=== PATIENT | female | born 1965 | race Caucasian/White ===

== ENCOUNTER → 2016-12-17 | Outpatient (CLI) | payer OTHER ==
[~2016-12-17] MED LIST: ACYC200C22 PO; CYCL10TA6 PO; IBUP-1451 PO; PENC1CRE33 EXT
--- NOTE | 2016-12-18 13:56 | MAMMOGRAPHY REPORT ---
BILATERAL DIGITAL SCREENING MAMMOGRAM TOMOSYNTHESIS WITH CAD: 12/17/2016 CLINICAL HISTORY: Routine screening. Patient has no complaints. TECHNIQUE: Breast tomosynthesis in addition to standard 2D mammography was performed. Current study was also evaluated with a Computer Aided Detection (CAD) system. COMPARISON: Comparison is made to exams dated: 12/01/2015 mammogram, 11/30/2014 mammogram, 11/29/2013 ma mmogram, 11/27/2012 mammogram, 11/22/2011 mammogram, and 11/23/2010 mammogram - [facility] enter. BREAST COMPOSITION: The tissue of both breasts is heterogeneously dense, which may obscure small ma sses. FINDINGS: The parenchymal pattern is unchanged. No developing mass, architectural distortion or clu ster of suspicious microcalcifications is seen in either breast. IMPRESSION: ACR BI-RADS CATEGORY 2: BENIGN There is no mammographic evidence of malignancy. A 1 year screening mammogram is recommended. The p atient will receive written notification of the results. Approximately 10% of breast cancers are not detected with mammography. A negative mammographic repor t should not delay biopsy if a clinically suggestive mass is present. Krystal Perry M.D. ay/:12/17/2016 17:26:52 Maintenance Machine Repairer: Jenny SKAGGS(Aaron)(Marely)([place]), [facility] letter sent: Normal 1/2 BI-RADS Code: ACR BI-RADS Category 2: Benign
== END | disposition home or self-care (01) ==
LOC: C.MAMM 13:23
PROVIDERS: ATTEND Family Medicine
DX: Z12.31 Encounter for screening mammogram for malignant neoplasm of breast (principal)

== ENCOUNTER 2017-08-30 19:06 | Emergency (ER) | payer OTHER ==
[~2017-08-30] VITALS: Ht 152.4 cm; Wt 55.3 kg
[2017-08-30 19:09] VITALS: TEMP 36.6; Ht 152.4 cm; Wt 55.3 kg
--- NOTE | 2017-08-30 20:03 | DIAGNOSTIC IMAGING REPORT ---
R KNEE 3 VIEWS CLINICAL HISTORY: 51 years-old Female presenting with RIGHT, FALL ON FLEXED R KNEE. TECHNIQUE: Frontal, sunrise, and lateral views of the right knee were obtained. COMPARISON: None. FINDINGS: No acute fracture or malalignment. No advanced degenerative change. No evidence of a knee joint effusion. IMPRESSION: No acute osseous injury of the right knee. Electronically signed by: Evan Aguiar M.D. 08/30/2017 8:02 PM Dictated Date/Time: 08/30/2017 8:01 PM
--- NOTE | 2017-08-30 20:09 | EMERGENCY ROOM VISIT NOTE ---
ED Visit Note First contact with patient: 19:17 CHIEF COMPLAINT: Right knee injury this morning HISTORY OF PRESENT ILLNESS: Patient is a 51-year-old white female who presents to the emergency department for evaluation of right knee pain. She injured the knee when she slipped at a local grocery store about 8 hours ago. She landed on the flexed right knee. She was helped up by some bystanders. She states that she was able to stand therefore a little bit, was able to walk, with a limp , and completed the rest of her shopping trip. She states she went about the rest of her day, performed normal activities, but states that the knee has gotten a little bit more stiff and sore as the day has gone on. She rates her discomfort a 6/10. She has not taken any medications, nor performed any interventions for her symptoms. 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 She reports that she has a clot in the "right groin," but is not on any blood thinners. REVIEW OF SYSTEMS: Review of systems as per HPI. All other systems reviewed were negative. At least 6 systems reviewed. PMH: Electronic medical records are reviewed and summarized as above/below. See Problem List. SOCIAL HISTORY: Patient lives at home with her family. Nonsmoker. PHYSICAL EXAM: Vital Signs: Reviewed Nurse's notes. MENTAL STATUS: Pleasant, well-appearing 51-year-old white female who is awake and alert and in no acute distress. MUSCULOSKELETAL: Examination of the right knee does not demonstrate any ecchymosis, prepatellar soft tissue swelling or joint effusion. There is an old prepatellar scar noted. There is no tenderness over the quadriceps tendon, the patella or the patellar ligament. Patient can do a straight leg raise without difficulty. There is no peripatellar tenderness or laxity. She has some slight medial joint line discomfort. Range of motion is full. No ligamentous instability is appreciated. Right lower extremity is neurovascularly intact. EMERGENCY DEPARTMENT COURSE: X-ray does not show any fractures or fluid in the joint. The patient was wrapped in Rj wrap and provided crutches for comfort. Conservative care measures were discussed. She was advised to follow- up with her family doctor or orthopedics if her symptoms are not improving. Differential diagnoses include contusion, patellar fracture, sprain, and his color ligamentous injury, among others. Medication reconciliation: I attest that I have personally reviewed the patient' s current medication list. Blood pressure screening : Patient was found to have normal blood pressure on screening and does not require follow-up. R KNEE 3 VIEWS CLINICAL HISTORY: 51 years-old Female presenting with RIGHT, FALL ON FLEXED R KNEE. TECHNIQUE: Frontal, sunrise, and lateral views of the right knee were obtained. COMPARISON: None. FINDINGS: No acute fracture or malalignment. No advanced degenerative change. No evidence of a knee joint effusion. IMPRESSION: No acute osseous injury of the right knee. Problem List Medical Problems: (1) No Known Active Medical Problems Status: Chronic Current/Historical Medications Scheduled PRN Cyclobenzaprine Hcl (Flexeril), 10 MG PO TID PRN for Muscle Spasm Ibuprofen Tab (Motrin), 800 MG PO TID PRN for Pain Allergies Coded Allergies: Pseudoephedrine (Unverified Allergy, Unknown, UNKNOWN, 07/23/10) Soap (Unverified Allergy, Unknown, UNKNOWN, 07/23/10) SAFE GUARD SOAP Uncoded Allergies: NONE (Allergy, Unknown, 06/30/04) Vital Signs Date Time Temp Pulse Resp B/P (MAP) Pulse Ox O2 Delivery O2 Flow Rate FiO2 08/30/17 19:09 36.6 110 20 144/80 98 Room Air Departure Information Impression Primary Impression: Contusion of right knee Referrals Sayda Mejias D.O. (PCP) Patient Instructions My [facility] Additional Instructions Ibuprofen(Motrin, Advil) may be used for fever or pain. Use 600mg every six hours as needed. Take with food. Avoid using more than 2400mg in a 24 hour period. Do not use 2400mg per day for more than three consecutive days without physician direction. Prolonged inappropriate use can lead to stomach upset or ulcers. This medication can be taken if you need to drive, work, or perform activities which may be dangerous when taking narcotic pain medication. (AND/OR) Acetaminophen(Tylenol) may be used for fever or pain. Use 1000mg every six hours as needed. Avoid using more than 3000mg in a 24 hour period. This medication can be taken if you need to drive, work, or perform activities which may be dangerous when taking narcotic pain medication. Ice compresses for 20 minutes at a time four times daily for 2-3 days. Use the crutches as instructed. Rest and elevate your injury. Continue current medications. Return to the ER immediately for any numbness, tingling, severe pain, extreme swelling in the extremity or as needed. Followup with your family doctor or orthopedic surgery if no improvement in 5-7 days.
[2017-08-30 20:19] VITALS: BP 139/87; PULSE 78; O2SAT 97
== END 2017-08-30 20:22 | disposition home or self-care (01) ==
LOC: C.EDB 19:07 → C.EDD 20:22
DX: S80.01XA Contusion of right knee, initial encounter (principal); X58.XXXA Exposure to other specified factors, initial encounter

== ENCOUNTER → 2017-12-18 | Outpatient (CLI) | payer OTHER ==
[~2017-12-18] MED LIST changes: -ACYC200C22 PO; -PENC1CRE33 EXT
--- NOTE | 2017-12-22 08:08 | MAMMOGRAPHY REPORT ---
BILATERAL DIGITAL SCREENING MAMMOGRAM TOMOSYNTHESIS WITH CAD: 12/18/2017 CLINICAL HISTORY: Routine screening. Patient has no complaints. TECHNIQUE: Breast tomosynthesis in addition to standard 2D mammography was performed. Current study was also evaluated with a Computer Aided Detection (CAD) system. COMPARISON: Comparison is made to exams dated: 12/17/2016 mammogram, 12/01/2015 mammogram, 11/30/2014 tram mogram, 11/29/2013 mammogram, 11/27/2012 mammogram, and 11/22/2011 mammogram - [facility]. BREAST COMPOSITION: The tissue of both breasts is heterogeneously dense, which may obscure small mas ses. FINDINGS: No suspicious masses, calcifications, or areas of architectural distortion are noted in ei ther breast. There has been no significant interval change compared to prior exams. Small nodular as ymmetry in the left lateral breast on the cc view is stable compared to prior exams including the 201 1 exam, and considered benign given long-term stability. IMPRESSION: ACR BI-RADS CATEGORY 2: BENIGN There is no mammographic evidence of malignancy. A 1 year screening mammogram is recommended. The pa tient will receive written notification of the results. Approximately 10% of breast cancers are not detected with mammography. A negative mammographic report should not delay biopsy if a clinically suggestive mass is present. Allie Mitchell M.D. /:12/18/2017 14:48:39 Cloth Finishing Range Operator Chief: Aaron Wright M, [facility] letter sent: Normal 1/2 BI-RADS Code: ACR BI-RADS Category 2: Benign
== END | disposition home or self-care (01) ==
LOC: C.MAMM 13:15
PROVIDERS: ATTEND Family Medicine
DX: Z12.31 Encounter for screening mammogram for malignant neoplasm of breast (principal)

== ENCOUNTER 2022-07-20 10:59 | Observation (INO) ==
[2022-07-20] MEDS ORDERED: SODIUM CHLORIDE 0.9% 1000ML 1,000 ML IV ONE ×2 (11:23→12:44)
[2022-07-20] MEDS ORDERED: ONDANSETRON INJ 2 MG/ML 2 ML VIAL IV STA (11:23)
--- NOTE | 2022-07-20 11:28 | Emergency Department Note ---
Impression & Plan Epistaxis, Anemia, Coagulopathy ED Provider Note NAME: SWETA NIETO AGE: 56 SEX: F : 1965 ARRIVES VIA: Ambulance INFORMANT: [Patient][nursing] ED PROVIDER(S): [Surinder Aguilera MD] CHIEF COMPLAINT: Nosebleed HISTORY OF PRESENT ILLNESS: The patient is a 56-year-old female who presents with 2 days of intermittent nasal bleeding. The blood has been coming down both sides of the nose and down the back of her throat. This morning, she was nauseated and vomited blood. She felt dizzy. She was brought by ambulance for evaluation. She is not actively bleeding at the present. The patient is on Eliquis, she is on this for a right leg DVT. She has been on the Eliquis for over 3 months. The patient has no history of previous nasal bleeding. She has never undergone nasal cautery. She states that she does have a tendency to always try to remove any debris or congestion from her nose and she thinks she was trying to clear her nose when the bleeding first began 2 days ago. No fall or trauma. REVIEW OF SYSTEMS: See HPI for pertinent positives and negatives. A total of ten systems were reviewed and were otherwise negative. PMHx/PSHx: See Below SOCIAL HISTORY: See Below. PHYSICAL EXAM: GENERAL: Patient is in no acute distress. HEENT: No acute trauma, normocephalic atraumatic, mucous membranes moist, no nasal congestion, no scleral icterus. The patient is not bleeding currently. There is clot noted to both sides of the nasal septum. There is a defect in the nasal septum and it appears that she has been bleeding along the posterior aspect of the defect. This is where the clot is noted. NECK: No stridor, no adenopathy, no meningismus, trachea is midline. LUNGS: Clear to auscultation bilaterally, no wheeze, no rhonchi, breath sounds equal. HEART: Tachycardic, regular rhythm, no murmurs ABDOMEN: Soft, nontender, bowel sounds positive, no peritonitis. EXTREMITIES: No cyanosis or edema, full range of motion of all the joints without pain or difficulty, no signs for acute trauma. NEUROLOGIC: Oriented x 3, no acute motor or sensory deficits, no focal weakness. SKIN: No rash, no jaundice, no diaphoresis. Pale. DIFFERENTIAL DIAGNOSIS: Coagulopathy, anemia, thrombocytopenia, dehydration, anterior epistaxis, posterior epistaxis, electrolyte imbalance, infection, among others. EMERGENCY DEPARTMENT COURSE/PROCEDURES: ECG: Indication was tachycardia. The ECG shows a sinus tachycardia with a rate of 117. There is no ST elevation, no PVCs. The QTc is 460. Continuous Cardiac Monitoring: An order was placed for continuous cardiac monitoring. The monitor shows a rate of 131 with sinus tachycardia. MEDICAL DECISION MAKING: There is no leukocytosis. Initial hemoglobin was around 11. This was a two-p oint drop for her looking back at previous testing. Platelet count was slightly elevated. No coagulopathy. No renal failure. No concerning liver enzyme elevation. COVID test returned negative. Repeat hemoglobin a few hours later showed a value of 8.9. Around a two-point drop from the earlier value. The patient received 2 L of IV saline for hydration. She was given nasal spray to prevent further nasal bleeding. She was given IV Zofran for nausea. Patient has an anterior nasal septal defect. She was bleeding from the posterior aspect of this defect prior to arrival but did not have any bleeding during her time in the ER. Given her Eliquis use, given the hemoglobin drop, given the epistaxis, I did think a hospital stay was warranted. I did speak with the patient and case management, the on-call hospitalist was consulted. I believe the Eliquis should be held for several days until the bleeding is better controlled. The risks of using Eliquis currently are outweighing the be nefits. Past Med/Surg History Medical History Asthma Colon cancer 1986 - s/p ileostomy DVT (deep venous thrombosis) History of ulcerative colitis Surgical History (Updated 07/20/22 @ 16:53 by Francheska Raymond PA-C) H/O total colectomy History of D&C History of ileostomy History of tubal ligation Family History (Updated 09/13/19 @ 18:13 by Tonio Griggs) Other Cancer Social History Smoking Status: Former smoker Preferred Language: Khmer marital status: current occupational status: unemployed Feels Safe at Home: Yes Allergies Allergies Allergy/AdvReac Type Severity Reaction Status Date / Time pseudoephedrine Allergy Unknown UNKNOWN Unverified 07/20/22 11:08 soap Allergy Unknown UNKNOWN Unverified 07/20/22 11:08 Sulfa (Sulfonamide Allergy Unknown Unknown Verified 07/20/22 11:08 Antibiotics) Home Meds Home Medications Medication Instructions Recorded Confirmed gabapentin 300 mg capsule 300 mg PO TID 02/20/19 07/20/22 apixaban 5 mg tablet (Eliquis) 5 mg PO BID 07/20/22 07/20/22 Results & Data (ED) Vital Signs Vital Signs - 24 hr 07/20/22 11:12 07/20/22 11:32 07/20/22 13:03 Temperature 36.9 C Temperature Source Oral Pulse Rate 133 H Pulse Rate [Finger] 117 H 116 H Pulse Rhythm Regular Pulse Strength Normal Respiratory Rate 18 16 16 Respiratory Effort / Characteristics Non-Labored Spontaneous Respiratory Depth Normal Respiratory Pattern Regular Blood Pressure 125/75 Blood Pressure [Right Arm] 125/75 129/78 Blood Pressure Mean 91 Blood Pressure Mean [Right Arm] 91 95 Blood Pressure Position Sitting Blood Pressure Position [Right Arm] Pulse Oximetry 100 98 98 Oxygen Delivery Method Room Air Room Air Room Air Sepsis Recent Fever Within 48 Hours No Sepsis New/Unexplained Change in Mental Status No Sepsis Action Taken by Nursing No Action Required 07/20/22 14:47 07/20/22 15:43 07/20/22 18:00 Temperature Temperature Source Pulse Rate Pulse Rate [Finger] 108 H 102 H 107 H Pulse Rhythm Pulse Strength Respiratory Rate 16 16 18 Respiratory Effort / Characteristics Non-Labored Non-Labored Spontaneous Respiratory Depth Normal Normal Respiratory Pattern Blood Pressure Blood Pressure [Right Arm] 118/72 116/71 115/66 Blood Pressure Mean Blood Pressure Mean [Right Arm] 87 86 82 Blood Pressure Position Blood Pressure Position [Right Arm] Lying Pulse Oximetry 98 98 99 Oxygen Delivery Method Room Air Room Air Sepsis Recent Fever Within 48 Hours Sepsis New/Unexplained Change in Mental Status Sepsis Action Taken by Retirement Medications Current Medication List: was personally reviewed by me Laboratory Data Attestation: I reviewed the patient's lab results. Result diagrams: 07/20/22 14:35 07/20/22 11:11 Lab Results 07/20/22 07/20/22 07/20/22 Range/Units 11:11 11:11 11:11 WBC 10.55 (4.8-10.8) K/ul RBC 4.67 (3.93-5.22) M/uL Hgb 11.1 L (12.0-16.0) g/dl Hct 34.7 (34.1-44.9) % MCV 74.3 L (80.0-100.0) fL MCH 23.8 L (25.0-34.0) pg MCHC 32.0 (32.0-36.0) g/dL RDW Std Deviation 43.5 (36.4-46.3) fL RDW Coeff of Marah 16.1 H (11.5-14.5) % Plt Count 509 H (130-400) K/uL MPV 8.9 L (9.4-12.3) fL Immature Gran % (Auto) 0.4 % Neut % (Auto) 93.4 % Lymph % (Auto) 3.8 % Rice % (Auto) 2.3 % Eos % (Auto) 0.0 % Baso % (Auto) 0.1 % Neut # (Auto) 9.86 H (1.4-6.5) K/uL Lymph # (Auto) 0.40 L (1.2-3.4) K/uL Rice # (Auto) 0.24 (0.24-0.82) K/uL Eos # (Auto) 0.00 (0-0.50) K/uL Baso # (Auto) 0.01 (0-0.2) K/uL Immature Gran # (Auto) 0.04 H (0.00-0.02) K/uL PT 11.3 (9.0-12.0) Seconds INR 1.1 (0.9-1.1) APTT 23.6 (21.0-31.0) Seconds PTT Ratio 0.9 Sodium 140 (136-145) mmol/L Potassium 4.3 (3.5-5.1) mmol/L Chloride 109 H (98-107) mmol/L Carbon Dioxide 24 (21-32) mmol/L Anion Gap 7 (3-11) BUN 36 H (6-23) mg/dl Creatinine 0.51 L (0.6-1.2) mg/dl Est Cr Clr Drug Dosing 78.4 ml/min Est GFR ( Amer) 122.8 ml/min Est GFR (Non-Af Amer) 106.0 ml/min BUN/Creatinine Ratio 70.6 H (10-20) Glucose 189 H (70-99(Fasting)) mg/dl Calcium 8.9 (8.5-10.1) mg/dl Magnesium 1.8 (1.7-2.4) mg/dl Total Bilirubin 0.3 (0.2-1.0) mg/dl AST 12 L (13-39) U/L ALT 10 (7-52) U/L Alkaline Phosphatase 66 (34-104) U/L Total Protein 6.5 (6.0-8.3) gm/dl Albumin 3.7 (3.4-5.0) gm/dl Globulin 2.8 (2.5-4.0) gm/dl Albumin/Globulin Ratio 1.3 (0.9-2) SARS-CoV-2, RNA, NAAT (NEGATIVE) 07/20/22 07/20/22 Range/Units 14:35 17:42 WBC (4.8-10.8) K/ul RBC (3.93-5.22) M/uL Hgb 8.9 L (12.0-16.0) g/dl Hct (34.1-44.9) % MCV (80.0-100.0) fL MCH (25.0-34.0) pg MCHC (32.0-36.0) g/dL RDW Std Deviation (36.4-46.3) fL RDW Coeff of Marah (11.5-14.5) % Plt Count (130-400) K/uL MPV (9.4-12.3) fL Immature Gran % (Auto) % Neut % (Auto) % Lymph % (Auto) % Rice % (Auto) % Eos % (Auto) % Baso % (Auto) % Neut # (Auto) (1.4-6.5) K/uL Lymph # (Auto) (1.2-3.4) K/uL Rice # (Auto) (0.24-0.82) K/uL Eos # (Auto) (0-0.50) K/uL Baso # (Auto) (0-0.2) K/uL Immature Gran # (Auto) (0.00-0.02) K/uL PT (9.0-12.0) Seconds INR (0.9-1.1) APTT (21.0-31.0) Seconds PTT Ratio Sodium (136-145) mmol/L Potassium (3.5-5.1) mmol/L Chloride (98-107) mmol/L Carbon Dioxide (21-32) mmol/L Anion Gap (3-11) BUN (6-23) mg/dl Creatinine (0.6-1.2) mg/dl Est Cr Clr Drug Dosing ml/min Est GFR ( Amer) ml/min Est GFR (Non-Af Amer) ml/min BUN/Creatinine Ratio (10-20) Glucose (70-99(Fasting)) mg/dl Calcium (8.5-10.1) mg/dl Magnesium (1.7-2.4) mg/dl Total Bilirubin (0.2-1.0) mg/dl AST (13-39) U/L ALT (7-52) U/L Alkaline Phosphatase (34-104) U/L Total Protein (6.0-8.3) gm/dl Albumin (3.4-5.0) gm/dl Globulin (2.5-4.0) gm/dl Albumin/Globulin Ratio (0.9-2) SARS-CoV-2, RNA, NAAT NEGATIVE (NEGATIVE) Administered Medications Discontinued Medications Sodium Chloride (Nss 1000ml) 1,000 mls @ 999 mls/hr IV .Q1H1M ONE Stop: 07/20/22 12:23 Last Infusion: 07/20/22 12:27 Dose: 0 mls/hr Documented By: Admin: 07/20/22 11:27 Dose: 999 mls/hr Documented By: AISLINN Sodium Chloride (Nss 1000ml) 1,000 mls @ 999 mls/hr IV .Q1H1M ONE Stop: 07/20/22 13:44 Last Infusion: 07/20/22 13:43 Dose: 0 mls/hr Documented By: Admin: 07/20/22 12:47 Dose: 999 mls/hr Documented By: YEISON Ondansetron HCl (Ondansetron Inj 2 Mg/Ml 2 Ml Vial) 4 mg IV NOW STA Stop: 07/20/22 11:24 Last Admin: 07/20/22 11:27 Dose: 4 mg Documented By: AISLINN Sodium Chloride (Sodium Chloride 0.65% Na Soln 45 Ml ([place])) 1 sprays NA NOW ONE Stop: 07/20/22 12:50 Last Admin: 07/20/22 12:55 Dose: 1 sprays Documented By: YEISON Discharge Plan Visit Data Chief Complaint: Nose Bleed (Minor) ED Provider: Surinder Aguilera Discharge Problem: Epistaxis, Anemia, Coagulopathy Patient Disposition: Admitted As Inpatient Condition: Good Forms Stand Alone Forms: My [facility] Prescriptions Prescriptions: No Action gabapentin 300 mg capsule 300 mg PO TID Eliquis 5 mg tablet 5 mg PO BID Referrals Referrals: Sayda Mejias DO [Outside Practitioners] -
[2022-07-20 11:33] LABS: Hematocrit (blood only) 34.7 % (34.1-44.9); Hemoglobin 11.1 g/dl (12.0-16.0); Mean Corpuscular Hemoglobin 23.8 pg (25.0-34.0); Mean Corpuscular Volume 74.3 fL (80.0-100.0); Mean Platelet Volume 8.9 fL (9.4-12.3); Platelet Count 509 K/uL (130-400); RDW Coefficient of Variation 16.1 % (11.5-14.5); RDW Standard Deviation 43.5 fL (36.4-46.3); Red Blood Count 4.67 M/uL (3.93-5.22); White Blood Count 10.55 K/ul (4.8-10.8)
[2022-07-20 11:50] LABS: INR 1.1 (0.9-1.1); Partial Thromboplastin Ratio 0.9; Partial Thromboplastin Time 23.6 Seconds (21.0-31.0); Prothrombin Time 11.3 Seconds (9.0-12.0)
[2022-07-20 11:51] LABS: Basophils # (auto) 0.01 K/uL (0-0.2); Basophils % (auto) 0.1 %; Immature Granulocytes # (auto) 0.04 K/uL (0.00-0.02); Immature Granulocytes % (auto) 0.4 %; Lymphocytes % (auto) 3.8 %; Monocytes # (auto) 0.24 K/uL (0.24-0.82); Monocytes % (auto) 2.3 %; Neutrophils # (auto) 9.86 K/uL (1.4-6.5); Neutrophils % (auto) 93.4 %
[2022-07-20 11:54] LABS: Albumin Globulin Ratio 1.3 (0.9-2); Albumin Level 3.7 gm/dl (3.4-5.0); BUN Creatinine Ratio 70.6 (10-20); Bilirubin,Total 0.3 mg/dl (0.2-1.0); Calcium 8.9 mg/dl (8.5-10.1); Creatinine Clr Calc Pharmacy 78.4 ml/min; Est GFR (African American) 122.8 ml/min; Globulin 2.8 gm/dl (2.5-4.0); Magnesium 1.8 mg/dl (1.7-2.4); Potassium 4.3 mmol/L (3.5-5.1); Total Protein 6.5 gm/dl (6.0-8.3)
[2022-07-20] MEDS ORDERED: SODIUM CHLORIDE 0.65% NA SOLN 45 ML (OCEAN) ONE (12:49)
--- NOTE | 2022-07-20 16:53 | History & Physical Report ---
Date of Service July 20, 2022 Assessment & Plan (1) Epistaxis: Plan: Anterior septal defect noted on exam - bleeding likely related to defect and digital trauma in the setting of chronic anticoagulation. No bleeding at present but marked drop in H&H from baseline 13-14 to 9. - Observe overnight with serial H&H - Blood consent done by Dr. Valencia - holding transfusion for now but pt agreeable if H&H continue to drop - Outpatient ENT follow-up - Hold Eliquis tonight and tomorrow morning - restart tomorrow if H&H stabilizes and no recurrent bleeding - Consider GI consult if ongoing drop in H&H that is not accounted for by epistaxis - will check FOBT althought anticipate it will be positive with recent hematemesis related to epistaxis (2) Acute blood loss anemia: (3) Chronic anticoagulation: (4) History of ulcerative colitis: Plan Continue other home medications as appropriate Pt seen and reviewed with collaborating physician, Dr. Valencia. Plan of care discussed and as outlined above. Code Status: Full code DVT Prophylaxis: SCDs for now - resume Eliquis as discussed above. Netta Raymond PA-C History of Present Illness Chief Complaint: Nose bleeding Primary Care Provider: Susie Ribera MD This is a 56 y/o female with a PMH of ulcerative colitis and colon cancer s/p total colectomy with ileostomy in 1986 and hx DVT on chronic Eliquis who presents to the ED today with recurrent epistaxis. Pt reports occasional issues with epistaxis prior to starting Eliquis but reports that she uses her finger to clear her nose at times. Two days ago, she started with more significant epistaxis than she has experienced previously, describing it was profuse at times. She was able to stop the bleeding each time with pressure. This morning, however, she reports swallowing a moderate amount of blood such that she started vomiting bloody clots. She had associated nausea, dizziness, and weakness so she came to the ED for additional evaluation. Since being in the ED, she has had no additional episodes of epistaxis. Nausea improve with Zofran. Of note, she started on Eliquis in December for a DVT and is recommended to continue this indefinitely. She denies abdominal pain, nasal pain, fevers, vaginal bleeding, chest pain, dyspnea. No recent change in ileostomy output or color. Allergies Allergy/AdvReac Type Severity Reaction Status Date / Time pseudoephedrine Allergy Unknown UNKNOWN Unverified 07/20/22 11:08 soap Allergy Unknown UNKNOWN Unverified 07/20/22 11:08 Sulfa (Sulfonamide Allergy Unknown Unknown Verified 07/20/22 11:08 Antibiotics) Home Medications Medication Instructions Recorded Confirmed Type gabapentin 300 mg capsule 300 mg PO TID 02/20/19 07/20/22 History apixaban 5 mg tablet (Eliquis) 5 mg PO BID 07/20/22 07/20/22 History Past Med/Surg History Medical History (Updated 07/20/22 @ 19:25 by Francheska Raymond PA-C) Asthma Colon cancer 1986 - s/p ileostomy DVT (deep venous thrombosis) History of ulcerative colitis Surgical History H/O total colectomy History of D&C History of ileostomy History of tubal ligation Family History Other Cancer Social History Smoking Status: Former smoker Preferred Language: Swedish marital status: current occupational status: unemployed Feels Safe at Home: Yes Review of Systems Review of Systems: All systems reviewed & are unremarkable except as noted in HPI & below Constitutional: + fatigue; no fever and no chills Ear, Nose, Mouth, Throat: as per Subjective / HPI Respiratory: no cough and no dyspnea Cardiovascular: no chest pain and no palpitations Gastrointestinal: no abdominal pain, no nausea, no vomiting and no blood in stools Genitourinary: no hematuria Musculoskeletal: no neck pain and no myalgia Integumentary: no yellowing of the skin Neurologic: + generalized weakness and + dizziness; no syncope and no headache(s) Psychiatric: no depression and no anxiety Physical Exam Constitutional: + thin; no acute distress Eyes: + anicteric sclerae ENMT: large anterior nasal septal defect with small amount of clotted blood Neck: trachea midline Respiratory: no respiratory distress and no labored breathing Auscultation: lungs clear to auscultation bilaterally; no rales, no rhonchi and no wheezes Cardiovascular: Rate/Rhythm: regular rhythm and + tachycardic trace right > left LE edema Gastrointestinal (Abdomen): Inspection/Auscultation: normal bowel sounds; abdomen not distended Percussion/Palpation: abdomen soft; abdomen nontender right abdomen with ileostomy Musculoskeletal: Head/Neck/Chest: normocephalic, head atraumatic and neck supple Skin: no jaundice Neurologic: moves all extremities; no focal motor deficits and not confused Psychiatric: A+Ox3, euthymic affect Results & Data Results & Data ([facility]) Vital Signs (Past 12 Hours) Vital Signs Temp Pulse Pulse Resp BP BP Pulse Ox 07/20/22 15:43 102 H 16 116/71 98 07/20/22 14:47 108 H 16 118/72 98 07/20/22 13:03 116 H 16 129/78 98 07/20/22 11:32 117 H 16 125/75 98 07/20/22 11:12 36.9 C 133 H 18 125/75 100 O2 Del Method 07/20/22 15:43 07/20/22 14:47 Room Air 07/20/22 13:03 Room Air 07/20/22 11:32 Room Air 07/20/22 11:12 Room Air Laboratory Results Laboratory Results - last 24 hr 07/20/22 07/20/22 07/20/22 11:11 11:11 11:11 WBC 10.55 RBC 4.67 Hgb 11.1 L Hct 34.7 MCV 74.3 L MCH 23.8 L MCHC 32.0 RDW Std Deviation 43.5 RDW Coeff of Marah 16.1 H Plt Count 509 H MPV 8.9 L Immature Gran % (Auto) 0.4 Neut % (Auto) 93.4 Lymph % (Auto) 3.8 Lincoln % (Auto) 2.3 Eos % (Auto) 0.0 Baso % (Auto) 0.1 Neut # (Auto) 9.86 H Lymph # (Auto) 0.40 L Lincoln # (Auto) 0.24 Eos # (Auto) 0.00 Baso # (Auto) 0.01 Immature Gran # (Auto) 0.04 H PT 11.3 INR 1.1 APTT 23.6 PTT Ratio 0.9 Sodium 140 Potassium 4.3 Chloride 109 H Carbon Dioxide 24 Anion Gap 7 BUN 36 H Creatinine 0.51 L Est Cr Clr Drug Dosing 78.4 Est GFR ( Amer) 122.8 Est GFR (Non-Af Amer) 106.0 BUN/Creatinine Ratio 70.6 H Glucose 189 H Calcium 8.9 Magnesium 1.8 Total Bilirubin 0.3 AST 12 L ALT 10 Alkaline Phosphatase 66 Total Protein 6.5 Albumin 3.7 Globulin 2.8 Albumin/Globulin Ratio 1.3 07/20/22 14:35 WBC RBC Hgb 8.9 L Hct MCV MCH MCHC RDW Std Deviation RDW Coeff of Marah Plt Count MPV Immature Gran % (Auto) Neut % (Auto) Lymph % (Auto) Lincoln % (Auto) Eos % (Auto) Baso % (Auto) Neut # (Auto) Lymph # (Auto) Lincoln # (Auto) Eos # (Auto) Baso # (Auto) Immature Gran # (Auto) PT INR APTT PTT Ratio Sodium Potassium Chloride Carbon Dioxide Anion Gap BUN Creatinine Est Cr Clr Drug Dosing Est GFR ( Amer) Est GFR (Non-Af Amer) BUN/Creatinine Ratio Glucose Calcium Magnesium Total Bilirubin AST ALT Alkaline Phosphatase Total Protein Albumin Globulin Albumin/Globulin Ratio Medications Administered Discontinued Medications Sodium Chloride (Nss 1000ml) 1,000 mls @ 999 mls/hr IV .Q1H1M ONE Stop: 07/20/22 12:23 Last Infusion: 07/20/22 12:27 Dose: 0 mls/hr Documented By: Admin: 07/20/22 11:27 Dose: 999 mls/hr Documented By: AISLINN Sodium Chloride (Nss 1000ml) 1,000 mls @ 999 mls/hr IV .Q1H1M ONE Stop: 07/20/22 13:44 Last Infusion: 07/20/22 13:43 Dose: 0 mls/hr Documented By: Admin: 07/20/22 12:47 Dose: 999 mls/hr Documented By: YEISON Ondansetron HCl (Ondansetron Inj 2 Mg/Ml 2 Ml Vial) 4 mg IV NOW STA Stop: 07/20/22 11:24 Last Admin: 07/20/22 11:27 Dose: 4 mg Documented By: AISLINN Sodium Chloride (Sodium Chloride 0.65% Na Soln 45 Ml ([place])) 1 sprays NA NOW ONE Stop: 07/20/22 12:50 Last Admin: 07/20/22 12:55 Dose: 1 sprays Documented By: YEISON Code Status & VTE Plan VTE Prophylaxis Plan VTE Prophylaxis will be ordered: Yes Supervising Physician Co-Signing Physician Notes Pt is a 56 y/o F with hx of UC and Colon Ca s/p ileostomy, recent hx of DVT on eliquis seen for drop in anemia and recurrent nose bleed. Dx with DVT on 12/2021 Per pt she cleans her nose often and started noticing bleeding 2 days ago PE: NAD, well developed HEENT: b/l dried blood in the nasal passage with nasal septal deformities, no ulcers Lungs: CTA, no wheezing or crackles Cardiac: Normal S1/S2, no murmur Abd: ND, Soft, ileostomy in place MSK: no LE edema Psych: AAOx3, normal affect A/P: Nose bleed with acute drop in hgb: -will hold the eliquis today -repeat CBC in 6 hrs x2 - pt is currently not having any acute bleeding - per pt she did have vomiting episode of blood clots --- likely from swallowing the blood from nose bleed --- not suspecting GI bleed -will send for FOBT (likely going to be positive) - if the hgb continues to trend down then I recommend GI consultation for possible scope celestina with hx of UC -can restart eliquis once the hgb is stabilize Agree with A/P by Francheska Raymond PA-C
[2022-07-20] MEDS ORDERED: ACETAMINOPHEN 325 MG TAB PO PRN (20:03)
[2022-07-20] MEDS: GABAPENTIN 300 MG CAP PO SCH (21:13)
[2022-07-20] MEDS ORDERED: MELATONIN 3 MG TAB PO PRN (21:28)
[2022-07-21 01:16] LABS: Hematocrit (blood only) 24.3 % (34.1-44.9); Hemoglobin 7.8 g/dl (12.0-16.0)
[2022-07-21] MEDS ORDERED: MAGNESIUM SULFATE / D5W 1 GM/100 ML BAG IV ONE ×2 (01:29→19:11)
[2022-07-21 06:16] LABS: Hematocrit (blood only) 23.9 % (34.1-44.9); Hemoglobin 7.7 g/dl (12.0-16.0)
[2022-07-21] MEDS: GABAPENTIN 300 MG CAP PO SCH ×3 (08:00→19:55)
[2022-07-21] MEDS: SODIUM CHLORIDE 0.9% 1000ML 1,000 ML IV SCH (08:01)
[2022-07-21 11:58] LABS: Hematocrit (blood only) 23.2 % (34.1-44.9); Hemoglobin 7.4 g/dl (12.0-16.0)
--- NOTE | 2022-07-21 13:07 | Hospitalist Progress Note ---
Date of Service July 21, 2022 Assessment & Plan (1) Epistaxis: Plan (1) Epistaxis: Anterior septal defect noted on exam - bleeding likely related to defect and digital trauma in the setting of chronic anticoagulation. No bleeding at present but marked drop in H&H from baseline 13-14 to 9 at admission day. - Observe overnight with serial H&H, Hb gradually dropping, low threshold for transfusion if w/ further drop in the evening. Bloos consent obtained on day of admission. - Iron profile sent, f/u - Avoid nose picking, Outpatient ENT follow-up - c/t hold Eliquis, restart when H&H stabilizes and no recurrent bleeding -Pt w/ no chest pain/dizziness or feeling of heart racing, BP soft and HR on higher side, continue to monitor clinically. (2) Acute blood loss anemia: see above (3) Chronic anticoagulation: (4) History of ulcerative colitis: Plan Continue other home medications as appropriate Code Status: Full code DVT Prophylaxis: SCDs for now - resume Eliquis as discussed above. Ambulation w/ assistance. Admission and Anticipated Discharge Date Admission Date: July 20, 2022 Subjective Patient seen and examined at bedside as a follow-up of acute blood loss anemia secondary to epistaxis on the background of chronic anticoagulation. Patient was lying in bed, on room air, NAD, reports eating okay and moving bowels okay, denies any further nasal bleeding while in hospital, denies any nose picking while in hospital, patient advised to avoid nose picking in future especially given that she is on blood thinner, patient denies headache or dizziness or chest pain or palpitation, patient denies sore throat or fever or chills or belly pain or other review of symptoms. Patient was revisited again during the day with the update on her repeat noon hemoglobin level which was lower than in the morning, because of hemoglobin not being stable and constantly though gradually dropping, will like to observe the patient overnight and further eval if we need to transfuse any blood. Iron profile pending. Physical Exam Physical Exam: GENERAL: Alert and oriented x3. NAD, on RA. HEENT: No pallor, no icterus. Pupils equal, round and reactive to light. Oral mucosa moist. Dried blood in b/l nares w/ nasal septal deformities. NECK: No JVD, no neck masses. HEART: S1 and S2 heard. Regular rate and rhythm. No murmur, no gallop. RESPIRATORY SYSTEM: Normal AP diameter. No accessory muscle use. No wheezing, no crackles. ABDOMEN: Soft, bowel sounds present, nontender, no distention. stoma bag noted. Healed old surgical scar +. CENTRAL NERVOUS SYSTEM: No facial droop. Speech is clear. Obeys simple commands. Moves extremities. EXTREMITIES: No edema but RLE size > LLE d/t recent clot in RLE, non tender, no erythema seen. Results & Data Results & Data ([facility]) Vital Signs (Past 12 Hours) Vital Signs Temp Pulse Pulse Resp BP Pulse Ox O2 Del Method 07/21/22 11:45 36.8 C 94 H 18 93/58 L 100 Room Air 07/21/22 08:06 36.8 C 96 H 16 97/55 L 97 Room Air 07/21/22 07:19 118 H 07/21/22 03:20 36.8 C 96 H 18 102/62 98 Room Air
[2022-07-21 13:12] LABS: Ferritin 6.5 ng/ml (8-388)
[2022-07-21] MEDS: FOLIC ACID 1 MG TAB PO SCH (17:14)
[2022-07-21] MEDS: CYANOCOBALAMIN (B-12) 100 MCG TABLET PO SCH (17:14)
[2022-07-21] MEDS ORDERED: IRON SUCROSE 200 MG in 0.9 % SODIUM CHLORIDE 100 ML IV ONE (18:00)
[2022-07-21 18:57] LABS: Hematocrit (blood only) 22.9 % (34.1-44.9); Hemoglobin 7.4 g/dl (12.0-16.0)
--- NOTE | 2022-07-21 22:02 | Electrocardiogram Report ---
Test Reason : Blood Pressure : / mmHG Vent. Rate : 117 BPM Atrial Rate : 117 BPM P-R Int : 132 ms QRS Dur : 104 ms QT Int : 330 ms P-R-T Axes : 066 069 068 degrees QTc Int : 460 ms Sinus tachycardia Incomplete right bundle branch block When compared with ECG of 28-JUL-2012 13:06, No significant change was found Confirmed by Drew Santana ([id number]) on 07/21/2022 10:02:13 PM Referred By: REFERRED SELF Confirmed By:Drew Santana
[2022-07-21 23:57] LABS: Hematocrit (blood only) 22.1 % (34.1-44.9); Hemoglobin 7.1 g/dl (12.0-16.0)
[2022-07-22] MEDS: SODIUM CHLORIDE 0.9% 1000ML 1,000 ML IV SCH (01:17)
[2022-07-22] MEDS ORDERED: SODIUM CHLORIDE 0.9% 250 ML IV PRN (07:32)
[2022-07-22 07:34] LABS: Hematocrit (blood only) 21.2 % (34.1-44.9); Hemoglobin 6.8 g/dl (12.0-16.0); Mean Corpuscular Hemoglobin 24.4 pg (25.0-34.0); Mean Corpuscular Hgb Conc 32.1 g/dL (32.0-36.0); Mean Platelet Volume 8.7 fL (9.4-12.3); Platelet Count 273 K/uL (130-400); RDW Coefficient of Variation 16.1 % (11.5-14.5); RDW Standard Deviation 44.6 fL (36.4-46.3); Red Blood Count 2.79 M/uL (3.93-5.22); White Blood Count 3.98 K/ul (4.8-10.8)
[2022-07-22] MEDS: FOLIC ACID 1 MG TAB PO SCH (07:43)
[2022-07-22] MEDS: GABAPENTIN 300 MG CAP PO SCH ×2 (07:43→15:21)
[2022-07-22] MEDS: CYANOCOBALAMIN (B-12) 100 MCG TABLET PO SCH (07:44)
[2022-07-22 09:43] LABS: BUN Creatinine Ratio 18.6 (10-20); Calcium 7.6 mg/dl (8.5-10.1); Creatinine Clr Calc Pharmacy 105.1 ml/min; Est GFR (African American) 129.9 ml/min; Est GFR (Non-African American) 112.1 ml/min; Potassium 3.1 mmol/L (3.5-5.1)
[2022-07-22 14:20] LABS: Hemoglobin 9.3 g/dl (12.0-16.0)
[2022-07-22] MEDS ORDERED: POTASSIUM CHLORIDE CRTAB 20 MEQ TABCR PO STA (16:19)
--- NOTE | 2022-07-22 16:32 | Discharge Summary ---
Date of Service July 22, 2022 Admission HPI Per Admitting Provider This is a 56 y/o female with a PMH of ulcerative colitis and colon cancer s/p total colectomy with ileostomy in 1986 and hx DVT on chronic Eliquis who presents to the ED today with recurrent epistaxis. Pt reports occasional issues with epistaxis prior to starting Eliquis but reports that she uses her finger to clear her nose at times. Two days ago, she started with more significant epistaxis than she has experienced previously, describing it was profuse at times. She was able to stop the bleeding each time with pressure. This morning, however, she reports swallowing a moderate amount of blood such that she started vomiting bloody clots. She had associated nausea, dizziness, and weakness so she came to the ED for additional evaluation. Since being in the ED, she has had no additional episodes of epistaxis. Nausea improve with Zofran. Of note, she started on Eliquis in December for a DVT and is recommended to continue this indefinitely. She denies abdominal pain, nasal pain, fevers, vaginal bleeding, chest pain, dyspnea. No recent change in ileostomy output or color. Admission Exam Per Admitting Provider Constitutional: + thin; no acute distress Eyes: + anicteric sclerae ENMT: large anterior nasal septal defect with small amount of clotted blood Neck: trachea midline Respiratory: no respiratory distress and no labored breathing Auscultation: lungs clear to auscultation bilaterally; no rales, no rhonchi and no wheezes Cardiovascular: Rate/Rhythm: regular rhythm and + tachycardic trace right > left LE edema Gastrointestinal (Abdomen): Inspection/Auscultation: normal bowel sounds; abdomen not distended Percussion/Palpation: abdomen soft; abdomen nontender right abdomen with ileostomy Musculoskeletal: Head/Neck/Chest: normocephalic, head atraumatic and neck supple Skin: no jaundice Neurologic: moves all extremities; no focal motor deficits and not confused Psychiatric: A+Ox3, euthymic affect Principal Diagnosis Epistaxis Recent diagnosis of DVT in December 2021 On chronic anticoagulation Discharge Exam GENERAL: Alert and oriented x3. NAD, on RA. HEENT: No pallor, no icterus. Pupils equal, round and reactive to light. Oral mucosa moist. Dried blood in b/l nares w/ nasal septal deformities. No active bleeding noted back of throat. NECK: No JVD, no neck masses. HEART: S1 and S2 heard. Regular rate and rhythm. No murmur, no gallop. RESPIRATORY SYSTEM: Normal AP diameter. No accessory muscle use. No wheezing, no crackles. ABDOMEN: Soft, bowel sounds present, nontender, no distention. stoma bag noted. Healed old surgical scar +. CENTRAL NERVOUS SYSTEM: No facial droop. Speech is clear. Obeys simple commands. Moves extremities. EXTREMITIES: No edema but RLE size > LLE d/t recent clot in RLE, non tender, no erythema seen. Discharge Data Allergies Allergy/AdvReac Type Severity Reaction Status Date / Time pseudoephedrine Allergy Unknown UNKNOWN Unverified 07/20/22 11:08 soap Allergy Unknown UNKNOWN Unverified 07/20/22 11:08 Sulfa (Sulfonamide Allergy Unknown Unknown Verified 07/20/22 11:08 Antibiotics) Consultations 07/20/22 16:45 ED Decision to Admit Stat 07/22/22 12:06 Consult Otolaryngology (Head and Neck) Routine Hospital Course (1) Epistaxis: Plan 56 yo F was managed for the following: (1) Epistaxis: Anterior septal defect noted on exam - bleeding likely related to defect and digital trauma in the setting of chronic anticoagulation. No bleeding at present but marked drop in H&H from baseline 13-14 to 9 at admission day which gradually went below 7 requiring 1 unit prbc and f/u hb was 9.3. Iron profile w/ ALFREDO and pt started on iron/vit b12/folate supplements. Pt insists on going home, ideally would want to make sure her Hb is stable for 2-3 readings 6 hrs apart. She insists she will f/u w/ pcp in 3-5 days and will get her labs drawn. Same was communicated to her who seems to be in agreement with her decision. - Tried to reach out to ENT but no ENT career information specialist today. - Avoid nose picking, Outpatient ENT follow-up, very imp for patient and patient made aware - c/t hold Eliquis for 2-3 days upon DC, restart when H&H stabilizes and no recurrent bleeding, close f/u w/ PCP. -Pt w/ no chest pain/dizziness or feeling of heart racing, VSS. (2) Acute blood loss anemia: see above (3) Chronic anticoagulation: d/t recent diagnosis of RLE DVt. (4) History of ulcerative colitis: Plan Continue other home medications as appropriate Code Status: Full code DVT Prophylaxis: SCDs for now - resume Eliquis as discussed above. Ambulation w/ assistance. Following instructions were communicated to the patient, and patient's via phone. Patient being discharged to home with following instruction at the point of discharge: Follow-up with your primary care physician within 3 to 5 days as discussed at the bedside, and you will need your blood work CBC/CMP/magnesium level in 3 days upon discharge which you will have to coordinate with your PCP office. As discussed at the bedside, you will need to establish ENT doctor and follow-up for long-term management of your septal perforation and recurrent epistaxis now that you need chronic anticoagulation. Avoid picking nose. Hold your Eliquis for 2 to 3 days, if no further bleeding from nose, resume your Eliquis and make your primary care doctor aware. If with further nasal bleeding or with signs and symptoms of low blood [dizziness/easy fatigability/heart racing/chest pain/weakness/increased pallor etc.], immediately contact ED. Take your medications as prescribed. Home Health Attestation I certify that this patient is under my care and that I, or a physicians assistant press operator working with me, had a face to-face encounter that meets the home health [id number] encounter requirements with this patient. The encounter with the patient was in whole, or in part, for the following medical condition, which is the primary reason for home health care (list medical condition): I certify that, based on my findings, the following services are medically necessary home health services: My clinical findings support the need for the above services because: Further, I certify that my clinical findings support that this patient is homebound (i.e. absences from home require considerable and taxing effort and are for medical reasons or restorationist services or infrequently or of short duration when for other reasons) because: Certification for Home Health Services: Based on the above findings, I certify that this patient is confined to the home and needs intermittent mcc care, physical therapy and/or speech therapy or continues to need occupational therapy. The patient is under my care, and I have initiated the establishment of the plan of care. This patient will be followed by a physician who will periodically review the plan of care. Total Time Total Time Spent Total Time Spent (In Minutes): 45 Discharge Plan Discharge Items Patient Disposition: Home - Self-Care Reason For Visit: NOSE BLEED Discharge Diagnosis: Epistaxis Recent diagnosis of DVT in December 2021 On chronic anticoagulation Condition on Discharge: Good Activity: Resume your previous activity Non-emergency contact: Primary Care Provider Call non-emergency contact if: you have any medication questions, your symptoms worsen, you have a fever and your temperature is above 101.5 Follow-up/Referrals: Susie Ribera MD [Primary Care Provider] - Diet: Heart Healthy Addtl Attending Provider Instructions: Follow-up with your primary care physician within 3 to 5 days as discussed at the bedside, and you will need your blood work CBC/CMP/magnesium level in 3 days upon discharge which you will have to coordinate with your PCP office. As discussed at the bedside, you will need to establish ENT doctor and follow-up for long-term management of your septal perforation and recurrent epistaxis now that you need chronic anticoagulation. Avoid picking nose. Hold your Eliquis for 2 to 3 days, if no further bleeding from nose, resume your Eliquis and make your primary care doctor aware. If with further nasal bleeding or with signs and symptoms of low blood [dizziness/easy fatigability/heart racing/chest pain/weakness/increased pallor etc.], immediately contact ED. Take your medications as prescribed. Pending Studies at Discharge: No Stand-Alone Forms: [facility], Smoking Cessation Medications and DC Order Prescriptions: New cyanocobalamin (vitamin B-12) [Vitamin B-12] 100 mcg Tablet 100 mcg PO QAM Qty: 30 0RF folic acid 1 mg Tablet 1 mg PO QAM Qty: 30 0RF ferrous gluconate 324 mg (38 mg iron) tablet 324 mg PO BID Qty: 60 0RF Continued gabapentin 300 mg capsule 300 mg PO TID Eliquis 5 mg tablet 5 mg PO BID Qty: 30 0RF Rx Instructions: HOLD ELIQUIS FOR 2-3 DAYS UPON DISCHARGE. Discharge Orders: Discharge Order (Routine); Ordered 07/22/22 Ordered By: Gabby Schmid Admission Data Admit Date/Time: 07/20/22 16:51 Attending Provider: Gabby Schmid Admit Provider: Scot Valencia Primary Care Provider: Susie Ribera Other Providers: Scot Valencia ; Erica Ling ; Divine Sears ; Jose G Camp ; Raulito Farias
[2022-07-22] MEDS ORDERED: POTASSIUM CHLORIDE CRTAB 20 MEQ TABCR PO ONE (16:50)
== END 2022-07-22 17:29 | disposition home or self-care (01) ==
LOC: ED 10:59 → 2N 10:59 → SUATTDRO 16:51 → 2N 19:35